=== PATIENT | male | born 1995 | race Caucasian/White ===

== ENCOUNTER 2019-01-13 09:46 | Emergency (ER) | payer OTHER ==
[2019-01-13] MEDS ORDERED: HYDROCODONE/CHLORPHEN 5 ML/OSYR ONE (10:38)
[2019-01-13] MEDS ORDERED: ONDANSETRON 4 MG (ODT) TAB ONE (10:39)
--- NOTE | 2019-01-13 11:54 | ER ---
Nurse's Notes [facility] Name: Umer Phillip Age: 23 yrs Sex: Male : 1995 Arrival Date: 01/13/2019 Time: 09:47 Bed 14 Private MD: Diagnosis: Malaise and fatigue;Myalgia Presentation: 01/13 10:01 Presenting complaint: Patient states: "after eating lunch yesterday I felt like I was aa5 hit by a bus, just hurting all over". Pt also c/o headache, fever, chills, diarrhea, and nausea. Denies vomiting. Pt reports slight cough. Transition of care: patient was not received from another setting of care. Onset of symptoms was January 2019. Risk Assessment: Do you want to hurt yourself or someone else? Patient reports no desire to harm self or others. Initial Sepsis Screen: Does the patient meet any 2 criteria? No. Patient's initial sepsis screen is negative. Does the patient have a suspected source of infection? No. Patient's initial sepsis screen is negative. Care prior to arrival: None. 10:01 Acuity: ELISEO 3 aa5 10:01 Method Of Arrival: Ambulatory aa5 Historical: - Allergies: 10:02 No Known Allergies; aa5 - PMHx: 10:02 Asthma; aa5 - PSHx: 10:02 Tonsillectomy; aa5 - Immunization history:: Flu vaccine is not up to date. - Social history:: Smoking status: Patient uses tobacco products, smokes one-half pack cigarettes per day. - Ebola Screening: : No symptoms or risks identified at this time. Screenin:43 Abuse screen: Denies threats or abuse. Denies injuries from another. Nutritional jl7 screening: No deficits noted. Tuberculosis screening: No symptoms or risk factors identified. Fall Risk None identified. Assessment: 10:43 General: Appears in no apparent distress. uncomfortable, ill, Behavior is calm, jl7 cooperative, appropriate for age. Pain: Complains of pain in "All over" Pain currently is 8 out of 10 on a pain scale. Quality of pain is described as aching, Pain began 1 day ago. Neuro: Level of Consciousness is awake, alert, obeys commands, Oriented to person, place, time, situation. Cardiovascular: Patient's skin is warm and dry. Cardiovascular: Heart tones present. Respiratory: Airway is patent Respiratory effort is even, unlabored, Respiratory pattern is regular, symmetrical, Breath sounds are clear bilaterally. GI: Abdomen is flat, non-distended, Bowel sounds present X 4 quads. : No signs and/or symptoms were reported regarding the genitourinary system. EENT: Throat is clear. Derm: Skin is pink, warm \\T\\ dry. 11:45 Reassessment: Patient appears in no apparent distress at this time. Patient and/or jl7 family updated on plan of care and expected duration. Pain level reassessed. Patient is alert, oriented x 3, equal unlabored respirations, skin warm/dry/pink. Patient states symptoms have improved. Vital Signs: 10:03 BP 137 / 80; Pulse 86; Resp 18 S; Temp 98.2(TE); Pulse Ox 98% on R/A; Weight 87.09 kg aa5 (R); Height 6 ft. 0 in. (182.88 cm) (R); Pain 8/10; 11:45 BP 132 / 80; Pulse 82; Resp 16 S; Pulse Ox 100% on R/A; Pain 7/10; jl7 10:03 Body Mass Index 26.04 (87.09 kg, 182.88 cm) aa5 ED Course: 09:47 Patient arrived in ED. as 10:02 Triage completed. aa5 10:02 Arm band placed on. aa5 10:11 Katie Hurtado, LAURA is Primary Nurse. jl7 10:15 Mariah Earl FNP-C is [facility]. snw 10:15 Campos Cooper MD is Attending Physician. snw 10:43 Patient has correct armband on for positive identification. Bed in low position. Call jl7 light in reach. Side rails up X 1. 10:43 Flu and/or RSV swab sent to lab. Strep swab sent to lab. jl7 12:08 No provider procedures requiring assistance completed. Patient did not have IV access jl7 during this emergency room visit. Administered Medications: 10:42 Drug: Tussionex Pennkinetic ER 5 ml Route: PO; jl7 12:10 Follow up: Response: No adverse reaction jl7 10:42 Drug: Zofran 4 mg Route: PO; jl7 11:00 Follow up: Response: No adverse reaction; Nausea is decreased jl7 Outcome: 11:53 Discharge ordered by MD. wright 12:08 Discharged to home ambulatory, with family. jl7 12:08 Condition: stable 12:08 Discharge instructions given to patient, family, Instructed on discharge instructions, follow up and referral plans. medication usage, Demonstrated understanding of instructions, follow-up care, medications, Prescriptions given X 2. 12:10 Patient left the ED. jl7 Signatures: Mariah Earl, PLASTERER ROUGH-C PLASTERER ROUGH-Csnw Consuelo Harley Audri, RN RN aa5 Katie Hurtado RN RN jl7
--- NOTE | 2019-01-13 11:54 | EDPHYS ---
Physician Documentation [facility] Name: Umer Phillip Age: 23 yrs Sex: Male : 1995 Arrival Date: 01/13/2019 Time: 09:47 Bed 14 Private MD: ED Physician Campos Cooper HPI: 01/13 10:33 This 23 yrs old Male presents to ER via Ambulatory with complaints of Fever, snw Pain All Over, Vomiting. 10:33 The patient reports fever, not measured (subjective). Modifying factors: The patient snw has had contact with sick. Associated signs and symptoms: Pertinent positives: chills, decreased appetite, myalgias, sinus congestion. Severity of symptoms: At their worst the symptoms were severe. The patient has not experienced similar symptoms in the past. The patient has been recently seen by a physician: yesterday, with similar presenting complaints. Historical: - Allergies: 10:02 No Known Allergies; aa5 - PMHx: 10:02 Asthma; aa5 - PSHx: 10:02 Tonsillectomy; aa5 - Immunization history:: Flu vaccine is not up to date. - Social history:: Smoking status: Patient uses tobacco products, smokes one-half pack cigarettes per day. - Ebola Screening: : No symptoms or risks identified at this time. ROS: 10:33 Eyes: Negative for injury, pain, redness, and discharge, ENT: Negative for injury, snw pain, and discharge, Neck: Negative for injury, pain, and swelling, Cardiovascular: Negative for chest pain, palpitations, and edema, Respiratory: Negative for shortness of breath, cough, wheezing, and pleuritic chest pain, Back: Negative for injury and pain, : Negative for injury, bleeding, discharge, and swelling, MS/Extremity: Negative for injury and deformity, Skin: Negative for injury, rash, and discoloration, Neuro: Negative for headache, weakness, numbness, tingling, and seizure. 10:33 Constitutional: Positive for body aches, chills, fatigue, fever, malaise, poor PO intake. 10:33 Abdomen/GI: Positive for abdominal pain, nausea, vomiting, and diarrhea, of the generalized. Exam: 10:33 Constitutional: This is a well developed, well nourished patient who is awake, alert, snw and in no acute distress. Head/Face: Normocephalic, atraumatic. Eyes: Pupils equal round and reactive to light, extra-ocular motions intact. Lids and lashes normal. Conjunctiva and sclera are non-icteric and not injected. Cornea within normal limits. Periorbital areas with no swelling, redness, or edema. ENT: Nares patent. No nasal discharge, no septal abnormalities noted. Tympanic membranes are normal and external auditory canals are clear. Oropharynx with no redness, swelling, or masses, exudates, or evidence of obstruction, uvula midline. Mucous membranes moist. Neck: Trachea midline, no thyromegaly or masses palpated, and no cervical lymphadenopathy. Supple, full range of motion without nuchal rigidity, or vertebral point tenderness. No Meningismus. Chest/axilla: Normal chest wall appearance and motion. Nontender with no deformity. No lesions are appreciated. Cardiovascular: Regular rate and rhythm with a normal S1 and S2. No gallops, murmurs, or rubs. Normal PMI, no JVD. No pulse deficits. Respiratory: Lungs have equal breath sounds bilaterally, clear to auscultation and percussion. No rales, rhonchi or wheezes noted. No increased work of breathing, no retractions or nasal flaring. Abdomen/GI: Soft, non-tender, with normal bowel sounds. No distension or tympany. No guarding or rebound. No evidence of tenderness throughout. Back: No spinal tenderness. No costovertebral tenderness. Full range of motion. Skin: Warm, dry with normal turgor. Normal color with no rashes, no lesions, and no evidence of cellulitis. MS/ Extremity: Pulses equal, no cyanosis. Neurovascular intact. Full, normal range of motion. Neuro: Awake and alert, GCS 15, oriented to person, place, time, and situation. Cranial nerves II-XII grossly intact. Motor strength 5/5 in all extremities. Sensory grossly intact. Cerebellar exam normal. Normal gait. Psych: Awake, alert, with orientation to person, place and time. Behavior, mood, and affect are within normal limits. Vital Signs: 10:03 BP 137 / 80; Pulse 86; Resp 18 S; Temp 98.2(TE); Pulse Ox 98% on R/A; Weight 87.09 kg aa5 (R); Height 6 ft. 0 in. (182.88 cm) (R); Pain 8/10; 11:45 BP 132 / 80; Pulse 82; Resp 16 S; Pulse Ox 100% on R/A; Pain 7/10; jl7 10:03 Body Mass Index 26.04 (87.09 kg, 182.88 cm) aa5 MDM: 10:16 Patient medically screened. [facility] 11:56 Data reviewed: vital signs, nurses notes. Data interpreted: Pulse oximetry: on room air snw is 98 %. Interpretation: normal. Counseling: I had a detailed discussion with the patient and/or guardian regarding: the historical points, exam findings, and any diagnostic results supporting the discharge/admit diagnosis, the presence of at least one elevated blood pressure reading (>120/80) during this emergency department visit, lab results, the need for outpatient follow up, to return to the emergency department if symptoms worsen or persist or if there are any questions or concerns that arise at home. Special discussion: Based on the history and exam findings, there is no indication for further emergent testing or inpatient evaluation. I discussed with the patient/guardian the need to see the primary care provider for further evaluation of the symptoms. 01/13 10:16 Order name: Flu; Complete Time: 11:40 snw 01/13 10:16 Order name: Strep; Complete Time: 11:12 snw 01/13 11:12 Order name: Throat Culture EDMS Administered Medications: 10:42 Drug: Tussionex Pennkinetic ER 5 ml Route: PO; jl7 12:10 Follow up: Response: No adverse reaction jl7 10:42 Drug: Zofran 4 mg Route: PO; jl7 11:00 Follow up: Response: No adverse reaction; Nausea is decreased jl7 Disposition: 01/14 07:35 Co-signature as Attending Physician, Campos Cooper MD I agree with the assessment and [facility] plan of care. Disposition: 01/13/19 11:53 Discharged to Home. Impression: Malaise and fatigue, Myalgia. - Condition is Stable. - Discharge Instructions: Influenza, Adult, Muscle Pain, Adult, Fatigue, Heat Therapy. - Prescriptions for orphenadrine citrate 100 mg Oral Tablet Sustained Release - take 1 tablet by ORAL route 2 times per day As needed; 20 tablet. promethazine 25 mg Oral Tablet - take 1 tablet by ORAL route every 6 hours As needed; 20 tablet. - Work release form, Medication Reconciliation Form, Thank You Letter, Antibiotic Education, Prescription Opioid Use form. - Follow up: Emergency Department; When: As needed; Reason: Worsening of condition. Follow up: Private Physician; When: 2 - 3 days; Reason: Recheck today's complaints, Continuance of care, Re-evaluation by your physician. Signatures: Dispatcher [employer] EDCO Campos Cooper, Mariah Narayanan MD, cha, ROSE MARIE-C REGISTERED PRIVATE DUTY NURSE-Csnw Leticia Kay, RN RN aa5 Katie Hurtado RN RN jl7 Corrections: (The following items were deleted from the chart) 01/13 12:10 11:53 01/13/2019 11:53 Discharged to Home. Impression: Malaise and fatigue; Myalgia. jl7 Condition is Stable. Forms are Medication Reconciliation Form, Thank You Letter, Antibiotic Education, Prescription Opioid Use. Follow up: Emergency Department; When: As needed; Reason: Worsening of condition. Follow up: Private Physician; When: 2 - 3 days; Reason: Recheck today's complaints, Continuance of care, Re-evaluation by your physician. snw
[2019-01-13 12:17] VITALS: TEMP 98.2
[2019-01-13 12:18] VITALS: BP 132/80; O2SAT 100
== END 2019-01-13 12:10 | disposition home or self-care (01) ==
LOC: ER 09:46
DX: M79.10 Myalgia, unspecified site (principal); R53.81 Other malaise; R53.83 Other fatigue
CPT/HCPCS: 87070; 87081; 87804; 99283

== ENCOUNTER 2020-01-03 13:57 | Emergency (ER) | payer OTHER, SELFPAY ==
[2020-01-03] MEDS ORDERED: HYDROCODONE/APAP 7.5/325 MG TAB ONE (14:34)
--- NOTE | 2020-01-03 14:49 | RAD REPORT ---
EXAM DESCRIPTION: CT - C Spine Wo Con - 01/03/2020 2:30 pm CLINICAL HISTORY: Neck injury with pain COMPARISON: 2013 TECHNIQUE: Computed axial tomography of the cervical spine were obtained with sagittal and coronal r econstruction images generated and reviewed. All CT scans are performed using dose optimization technique as appropriate and may include automated exposure control or mA/KV adjustment according to patient size. FINDINGS: A cervical fracture is not seen. No dislocation. Mild scoliosis involves the cervical spine No high-grade foraminal/ central stenosis seen IMPRESSION: A cervical fracture is not seen. Mild scoliosis may indicate muscle spasm. If the patient continues have symptoms to suggest spinal cord/spinal canal pathology then MRI would b e recommended.
--- NOTE | 2020-01-03 14:54 | RAD REPORT ---
EXAM DESCRIPTION: CTThoracic Spine W/o Cont01/03/2020 2:30 pm CLINICAL HISTORY: Back injury with Back pain COMPARISON: None TECHNIQUE: Computed axial tomography of thoracic spine was obtained with coronal and sagittal recons truction. All CT scans are performed using dose optimization technique as appropriate and may include automated exposure control or mA/KV adjustment according to patient size. FINDINGS: No fracture is seen. No dislocation is noted. No high-grade central/foraminal stenosis seen. IMPRESSION: Negative for a thoracic fracture If the patient has clinical symptoms to suggest spinal cord/spinal canal pathology then MRI would be recommended.
--- NOTE | 2020-01-03 15:32 | ER ---
Nurse's Notes [facility] Name: Umer Phillip Age: 24 yrs Sex: Male : 1995 Arrival Date: 01/03/2020 Time: 13:58 Bed 7 Private MD: Diagnosis: Muscle spasm of back Presentation: 01/02 14:08 Chief complaint: Patient states: Pushing a car and felt something pop in my neck and jl7 upper back and now I can't move my neck, reporting pain to neck and upper back x 30 min. Coronavirus screen: Client denies travel out of the [place] in the last 14 days. At this time, the client does not indicate any symptoms associated with coronavirus-19. Ebola Screen: No symptoms or risks identified at this time. Initial Sepsis Screen: Does the patient meet any 2 criteria? No. Patient's initial sepsis screen is negative. Does the patient have a suspected source of infection? No. Patient's initial sepsis screen is negative. Risk Assessment: Do you want to hurt yourself or someone else? Patient reports no desire to harm self or others. Onset of symptoms was January 03, 2020 at 13:40. Care prior to arrival: None. 14:08 Method Of Arrival: Ambulatory 7 14:08 Acuity: ELISEO 4 jl7 Triage Assessment: 14:10 General: Appears in no apparent distress. uncomfortable, Behavior is calm, cooperative, jl7 appropriate for age. Pain: Complains of pain in neck and upper back Pain currently is 6 out of 10 on a pain scale. Historical: - Allergies: 14:10 No Known Allergies; jl7 - Home Meds: 14:10 None [Active]; jl7 - PMHx: 14:10 Asthma; jl7 - PSHx: 14:10 Tonsillectomy; jl7 - Immunization history:: Adult Immunizations up to date. - Social history:: Smoking status: Patient denies any tobacco usage or history of. Screenin:00 Abuse screen: Denies threats or abuse. Denies injuries from another. Nutritional jl7 screening: No deficits noted. Tuberculosis screening: No symptoms or risk factors identified. Fall Risk None identified. Assessment: 15:00 General: Appears in no apparent distress. comfortable, Behavior is calm, cooperative. iw Pain: Complains of pain in thoracic spine and cervical spine and right trapezius and right mid cervical area. Neuro: Level of Consciousness is awake, alert, obeys commands, Oriented to person, place, time, situation, Moves all extremities. Cardiovascular: Patient's skin is warm and dry. Respiratory: Respiratory effort is even, unlabored, Respiratory pattern is regular, symmetrical. Derm: Skin is intact, is healthy with good turgor. Musculoskeletal: Range of motion: intact in all extremities. 15:45 Reassessment: Patient appears in no apparent distress at this time. No changes from jl7 previously documented assessment. Patient and/or family updated on plan of care and expected duration. Pain level reassessed. Patient is alert, oriented x 3, equal unlabored respirations, skin warm/dry/pink. Vital Signs: 14:08 BP 124 / 83; Pulse 100; Resp 19; Temp 98.6; Pulse Ox 100% ; Weight 89.81 kg; Height 5 jl7 ft. 11 in. (180.34 cm); Pain 6/10; 15:57 BP 127 / 86; Pulse 87; Resp 17; Pulse Ox 99% ; jl7 14:08 Body Mass Index 27.62 (89.81 kg, 180.34 cm) jl7 ED Course: 13:58 Patient arrived in ED. ag5 14:10 Triage completed. jl7 14:10 Arm band placed on right wrist. jl7 14:12 Olga Philip, RN is Primary Nurse. iw 14:14 Shaila Chester FNP-C is PHCP. kb 14:14 Campos Cooper MD is Attending Physician. kb 14:27 CT completed. Patient tolerated procedure well. Patient moved to CT via wheelchair. sw Patient moved back from CT. 14:41 CT Thoracic Spine Wo Cont In Process Unspecified. EDMS 14:41 CT C Spine In Process Unspecified. EDMS 15:00 Patient has correct armband on for positive identification. Bed in low position. Call jl7 light in reach. Side rails up X 1. 15:58 No provider procedures requiring assistance completed. Patient did not have IV access jl7 during this emergency room visit. Administered Medications: 14:23 Drug: [place] (7.5 mg-325 mg) 1 tabs Route: PO; iw 15:57 Follow up: Response: No adverse reaction jl7 15:44 Drug: TORadol 30 mg Route: IM; Site: right deltoid; jl7 15:57 Follow up: Response: No adverse reaction jl7 15:45 Drug: Valium 2 mg Route: PO; jl7 15:57 Follow up: Response: No adverse reaction jl7 Outcome: 15:32 Discharge ordered by . kb 15:58 Patient left the ED. 15:58 Discharged to home via wheelchair, with family. 7 15:58 Condition: stable 15:58 Discharge instructions given to patient, friend, Instructed on discharge instructions, follow up and referral plans. no driving heavy equipment, medication usage, Demonstrated understanding of instructions, follow-up care, medications, Prescriptions given X 2. Signatures: Dispatcher [employer] Shaila Guzman, SOCIOLOGY FACULTY MEMBER-C SOCIOLOGY FACULTY MEMBER-Olga Fink, RN Monique Agudelo Jahala, RN RN [facility] Deepika, Rosa 5
--- NOTE | 2020-01-03 15:32 | EDPHYS ---
Physician Documentation [facility] Name: Umer Phillip Age: 24 yrs Sex: Male : 1995 Arrival Date: 01/03/2020 Time: 13:58 Bed 7 Private MD: ED Physician Campos Cooper HPI: 01/02 15:30 This 24 yrs old Male presents to ER via Ambulatory with complaints of Neck kb and Upper Back Pain. 15:30 The patient or guardian complains of pain, tenderness. The symptoms are located at the kb cervical spine and thoracic spine. Onset: The symptoms/episode began/occurred just prior to arrival. Context: The problem was sustained at home, outdoors, The neck injury/problem resulted from pushing a vehicle. Associated signs and symptoms: The patient has no apparent associated signs or symptoms, The patient denies any alcohol use. The patient is not apparently intoxicated. No neurological symptoms were experienced by the patient prior to arrival in the emergency department. The pain does not radiate. Modifying factors: The symptoms are alleviated by nothing. the symptoms are aggravated by nothing. Severity of symptoms: At their worst the symptoms were moderate, in the emergency department the symptoms are unchanged. The patient has not experienced similar symptoms in the past. The patient has not recently seen a physician. Historical: - Allergies: 14:10 No Known Allergies; jl7 - Home Meds: 14:10 None [Active]; jl7 - PMHx: 14:10 Asthma; jl7 - PSHx: 14:10 Tonsillectomy; jl7 - Immunization history:: Adult Immunizations up to date. - Social history:: Smoking status: Patient denies any tobacco usage or history of. ROS: 15:28 Constitutional: Negative for fever, chills, and weight loss, Cardiovascular: Negative kb for chest pain, palpitations, and edema, Respiratory: Negative for shortness of breath, cough, wheezing, and pleuritic chest pain, Abdomen/GI: Negative for abdominal pain, nausea, vomiting, diarrhea, and constipation, : Negative for injury, bleeding, discharge, and swelling, MS/Extremity: Negative for injury and deformity, Skin: Negative for injury, rash, and discoloration, Neuro: Negative for headache, weakness, numbness, tingling, and seizure. 15:28 Neck: Positive for pain with movement, pain at rest, tenderness, of the neck. 15:28 Back: Positive for pain at rest, pain with movement, of the thoracic area. Exam: 15:29 Constitutional: This is a well developed, well nourished patient who is awake, alert, kb and in no acute distress. Head/Face: Normocephalic, atraumatic. Chest/axilla: Normal chest wall appearance and motion. Nontender with no deformity. No lesions are appreciated. Cardiovascular: Regular rate and rhythm with a normal S1 and S2. No gallops, murmurs, or rubs. Normal PMI, no JVD. No pulse deficits. Respiratory: Lungs have equal breath sounds bilaterally, clear to auscultation and percussion. No rales, rhonchi or wheezes noted. No increased work of breathing, no retractions or nasal flaring. Abdomen/GI: Soft, non-tender, with normal bowel sounds. No distension or tympany. No guarding or rebound. No evidence of tenderness throughout. Skin: Warm, dry with normal turgor. Normal color with no rashes, no lesions, and no evidence of cellulitis. MS/ Extremity: Pulses equal, no cyanosis. Neurovascular intact. Full, normal range of motion. Neuro: Awake and alert, GCS 15, oriented to person, place, time, and situation. Cranial nerves II-XII grossly intact. Motor strength 5/5 in all extremities. Sensory grossly intact. Cerebellar exam normal. Normal gait. 15:29 Neck: External neck: tenderness, that is moderate, of the left mid cervical area, right mid cervical area, left trapezius, lower cervical area and right trapezius. 15:29 Back: pain, that is moderate, of the thoracic area. Vital Signs: 14:08 BP 124 / 83; Pulse 100; Resp 19; Temp 98.6; Pulse Ox 100% ; Weight 89.81 kg; Height 5 jl7 ft. 11 in. (180.34 cm); Pain 6/10; 15:57 BP 127 / 86; Pulse 87; Resp 17; Pulse Ox 99% ; jl7 14:08 Body Mass Index 27.62 (89.81 kg, 180.34 cm) jl7 MDM: 14:14 Patient medically screened. kb 15:28 Data reviewed: vital signs, nurses notes. Data interpreted: Pulse oximetry: on room air kb is 100 %. Interpretation: normal. Counseling: I had a detailed discussion with the patient and/or guardian regarding: the historical points, exam findings, and any diagnostic results supporting the discharge/admit diagnosis, radiology results, the need for outpatient follow up, a family practitioner, to return to the emergency department if symptoms worsen or persist or if there are any questions or concerns that arise at home. 01/02 14:18 Order name: CT Thoracic Spine Wo Cont; Complete Time: 15:02 kb 01/02 14:18 Order name: CT C Spine; Complete Time: 14:54 kb Administered Medications: 14:23 Drug: [place] (7.5 mg-325 mg) 1 tabs Route: PO; iw 15:57 Follow up: Response: No adverse reaction jl7 15:44 Drug: TORadol 30 mg Route: IM; Site: right deltoid; jl7 15:57 Follow up: Response: No adverse reaction jl7 15:45 Drug: Valium 2 mg Route: PO; jl7 15:57 Follow up: Response: No adverse reaction jl7 Disposition: 01/03 13:36 Co-signature as Attending Physician, Campos Cooper MD I agree with the assessment and mateo plan of care. Disposition: 01/03/20 15:32 Discharged to Home. Impression: Muscle spasm of back. - Condition is Stable. - Discharge Instructions: Back Pain, Adult, [id number], Muscle Cramps and Spasms, [id number]. - Prescriptions for Cyclobenzaprine 10 mg Oral Tablet - take 1 tablet by ORAL route every 8 hours As needed; 21 tablet. Diclofenac Sodium 75 mg Oral Tablet, Delayed Release (E.C.) - take 1 tablet by ORAL route 2 times per day As needed; 30 tablet. - Medication Reconciliation Form, Thank You Letter, Antibiotic Education, Prescription Opioid Use form. - Follow up: Emergency Department; When: As needed; Reason: Worsening of condition. Follow up: Private Physician; When: 2 - 3 days; Reason: Recheck today's complaints, Continuance of care, Re-evaluation by your physician. Signatures: Dispatcher [employer] EDShaila Marino, Campos Reese MD MD cha Williams, Irene RN Katie Gupta RN RN jl7 Corrections: (The following items were deleted from the chart) 01/02 15:58 15:32 01/03/2020 15:32 Discharged to Home. Impression: Muscle spasm of back. Condition iw is Stable. Forms are Medication Reconciliation Form, Thank You Letter, Antibiotic Education, Prescription Opioid Use. Follow up: Emergency Department; When: As needed; Reason: Worsening of condition. Follow up: Private Physician; When: 2 - 3 days; Reason: Recheck today's complaints, Continuance of care, Re-evaluation by your physician. kb
[2020-01-03] MEDS ORDERED: KETOROLAC 30 MG/ML INJ ONE (15:54)
[2020-01-03] MEDS ORDERED: DIAZEPAM 2 MG TABLET ONE (15:54)
[2020-01-03 16:08] VITALS: TEMP 98.6
[2020-01-03 16:09] VITALS: BP 127/86; O2SAT 99
== END 2020-01-03 15:58 | disposition home or self-care (01) ==
LOC: ER 13:57
DX: M62.830 Muscle spasm of back (principal); M54.2 Cervicalgia
CPT/HCPCS: 72125; 72128; 96372; 99284

== ENCOUNTER 2020-12-12 18:40 | Emergency (ER) | payer SELFPAY ==
[2020-12-12] MEDS ORDERED: ACETAMINOPHEN 325 MG TABLET ONE ×2 (19:42→21:34)
[2020-12-12 20:26] LABS: SARS-COV-2 RT PCR POSITIVE (NEGATIVE)
--- NOTE | 2020-12-12 20:53 | ER ---
Nurse's Notes [facility] Name: Umer Phillip Age: 24 yrs Sex: Male : 1995 Arrival Date: 12/12/2020 Time: 18:41 Bed 11 Private MD: Diagnosis: SARS-associated coronavirus as the cause of diseases classified elsewhere;Fever, unspecified Presentation: 12/12 19:11 Chief complaint: Patient states: Fever, body aches, dizziness, headaches x 2 days. kg Coronavirus screen: Vaccine status: Patient reports being unvaccinated. chills, congestion, fever, headache, runny nose, Client presents with at least one sign or symptom that may indicate coronavirus-19. Standard/surgical mask placed on the client. Provider contacted for isolation considerations. Ebola Screen: Patient negative for fever greater than or equal to 101.5 degrees Fahrenheit, and additional compatible Ebola Virus Disease symptoms Patient denies exposure to infectious person. Patient denies travel to an Ebola-affected area in the 21 days before illness onset. Initial Sepsis Screen: Does the patient meet any 2 criteria? No. Patient's initial sepsis screen is negative. Does the patient have a suspected source of infection? No. Patient's initial sepsis screen is negative. Risk Assessment: Do you want to hurt yourself or someone else? Patient reports no desire to harm self or others. Onset of symptoms was December 11, 2020. 19:11 Method Of Arrival: Ambulatory kg 19:11 Acuity: ELISEO 4 kg Triage Assessment: 19:13 General: Appears in no apparent distress. Behavior is calm, cooperative, appropriate kg for age, quiet. Pain: Complains of pain in Generalized. Historical: - Allergies: 19:13 No Known Allergies; kg - Home Meds: 19:13 None [Active]; kg - PMHx: 19:13 Asthma; kg - PSHx: 19:13 None; kg - Immunization history:: Adult Immunizations up to date, Client reports having NOT received the Covid vaccine. - Social history:: Smoking status: Reported history of juuling and/or vaping. Patient uses alcohol, occasionally. - Family history:: not pertinent. - Hospitalizations: : No recent hospitalization is reported. Screenin:23 Abuse screen: Denies threats or abuse. Denies injuries from another. Nutritional kg screening: No deficits noted. Tuberculosis screening: No symptoms or risk factors identified. Fall Risk None identified. Assessment: 21:40 Reassessment: Patient appears in no apparent distress at this time. Patient is alert, vg1 oriented x 3, equal unlabored respirations, skin warm/dry/pink. Patient denies pain at this time. Vital Signs: 19:22 BP 147 / 95; Pulse 85; Resp 20; Temp 99.2(O); Pulse Ox 98% on R/A; Weight 94.8 kg; kg Height 5 ft. 11 in. (180.34 cm) (R); Pain 7/10; 20:48 BP 126 / 88; Pulse 92; Resp 22; Temp 98.2; Pulse Ox 100% on R/A; cc4 21:41 BP 122 / 76; Pulse 79; Resp 20; Pulse Ox 98% on R/A; vg1 19:22 Body Mass Index 29.15 (94.80 kg, 180.34 cm) kg ED Course: 18:41 Patient arrived in ED. am2 19:13 Triage completed. kg 19:14 Itz Dobbs MD is Attending Physician. rn 19:23 Patient has correct armband on for positive identification. kg 19:23 Arm band placed on. kg 20:48 No provider procedures requiring assistance completed. cc4 21:03 Enma Lopez is Primary Nurse. cc4 21:41 Patient did not have IV access during this emergency room visit. vg1 Administered Medications: 19:20 Drug: Tylenol 650 mg Route: PO; kg Outcome: 20:52 Discharge ordered by MD. rn 21:40 Discharged to home ambulatory. vg1 21:40 Condition: stable 21:40 Discharge instructions given to patient, Instructed on discharge instructions, follow up and referral plans. Demonstrated understanding of instructions, follow-up care. 21:41 Patient left the ED. vg1 Signatures: Itz Dobbs MD MD rn Moreno, Amanda am2 Britta Ng RN RN vg1 Tracy Leahy RN RN kg Enma Lopez cc4 Corrections: (The following items were deleted from the chart) 21:15 21:15 Tylenol 650 mg PO kg kg
--- NOTE | 2020-12-12 20:53 | EDPHYS ---
Physician Documentation [facility] Name: Umer Phillip Age: 24 yrs Sex: Male : 1995 Arrival Date: 12/12/2020 Time: 18:41 Bed 11 Private MD: ED Physician Itz Dobbs HPI: 12/12 19:15 This 24 yrs old Male presents to ER via Ambulatory with complaints of Fever, rn Cough, Dizziness, bodyaches. 19:15 The patient reports fever, not measured (subjective). Onset: The symptoms/episode rn began/occurred this morning. Modifying factors: there are no obvious modifying factors. Associated signs and symptoms: Pertinent positives: chills, cough, diarrhea, myalgias, runny nose, Pertinent negatives: abdominal pain, altered mental status, shortness of breath. Severity of symptoms: At their worst the symptoms were mild in the emergency department the symptoms are unchanged. The patient has not experienced similar symptoms in the past. The patient has not recently seen a physician. Patient reports muscle aches, cough, runny nose, diarrhea, fatigue, began this morning. No known sick contacts but recently in contact with Covid positive patient. Daughter with dry cough. Patient vapes.. Historical: - Allergies: 19:13 No Known Allergies; kg - Home Meds: 19:13 None [Active]; kg - PMHx: 19:13 Asthma; kg - PSHx: 19:13 None; kg - Immunization history:: Adult Immunizations up to date, Client reports having NOT received the Covid vaccine. - Social history:: Smoking status: Reported history of juuling and/or vaping. Patient uses alcohol, occasionally. - Family history:: not pertinent. - Hospitalizations: : No recent hospitalization is reported. ROS: 19:15 Constitutional: + fever and chills Eyes: Negative for injury, pain, redness, and rn infusion, ENT: Positive for cough and sore throat, positive for nasal congestion Cardiovascular: Negative for chest pain, palpitations, and edema, Respiratory: Positive for cough Abdomen/GI: Positive for diarrhea, negative for abdominal pain : Negative for injury, bleeding, discharge, and swelling, MS/Extremity: Negative for injury and deformity, Skin: Negative for injury, rash, and discoloration, Neuro: Negative for headache,numbness, tingling, and seizure. 19:15 All other systems are negative. rn Exam: 19:15 Constitutional: This is a well developed, well nourished patient who is awake, alert, rn and in no acute distress. Ambulatory to triage room without assistance. Head/Face: Normocephalic, atraumatic. Eyes: Pupils equal round and reactive to light, extra-ocular motions intact. Lids and lashes normal. Conjunctiva and sclera are non-icteric and not injected. Cornea within normal limits. Periorbital areas with no swelling, redness, or edema. ENT: No stridor Cardiovascular: Regular rate and rhythm. No pulse deficits. Respiratory: Mild tachypnea. No retractions. Speaking full sentences. Abdomen/GI: Soft, non-tender Skin: Warm, dry MS/ Extremity: Pulses equal, no cyanosis. Neurovascular intact. Full, normal range of motion. Equal circumference. Neuro: Awake and alert, GCS 15, oriented to person, place, time, and situation. Cranial nerves II-XII grossly intact. Motor strength 5/5 in all extremities. Sensory grossly intact. Normal gait. Vital Signs: 19:22 BP 147 / 95; Pulse 85; Resp 20; Temp 99.2(O); Pulse Ox 98% on R/A; Weight 94.8 kg; kg Height 5 ft. 11 in. (180.34 cm) (R); Pain 7/10; 20:48 BP 126 / 88; Pulse 92; Resp 22; Temp 98.2; Pulse Ox 100% on R/A; cc4 21:41 BP 122 / 76; Pulse 79; Resp 20; Pulse Ox 98% on R/A; vg1 19:22 Body Mass Index 29.15 (94.80 kg, 180.34 cm) kg MDM: 19:14 Patient medically screened. rn 20:51 Differential diagnosis: viral Infection, bacterial infection, URI, pneumonia. Data rn reviewed: vital signs, nurses notes, lab test result(s), and as a result, I will discharge patient. Data interpreted: case monitor: rate is 85 beats/min, rhythm is normal sinus rhythm, regular, with no ectopy, Interpretation: normal rate, normal rhythm, Pulse oximetry: on room air is 98 %. Interpretation: normal. Counseling: I had a detailed discussion with the patient and/or guardian regarding: the historical points, exam findings, and any diagnostic results supporting the discharge/admit diagnosis, lab results, the need for outpatient follow up, to return to the emergency department if symptoms worsen or persist or if there are any questions or concerns that arise at home. Special discussion: I discussed with the patient/guardian in detail that at this point there is no indication for admission to the hospital. It is understood, however, that if the symptoms persist or worsen the patient needs to return immediately for re-evaluation. 12/12 19:14 Order name: Flu rn 12/12 20:26 Order name: COVID-19/FLU A+B; Complete Time: 20:51 EDMS Administered Medications: 19:20 Drug: Tylenol 650 mg Route: PO; kg Disposition Summary: 12/12/20 20:52 Discharge Ordered Location: Home rn Problem: new rn Symptoms: have improved rn Condition: Stable rn Diagnosis - SARS-associated coronavirus as the cause of diseases classified elsewhere rn - Fever, unspecified rn Followup: rn - With: Private Physician - When: As needed - Reason: Recheck today's complaints, Re-evaluation by your physician Discharge Instructions: - Discharge Summary Sheet rn - Fever, Adult rn - COVID-19 rn - 10 Things You Can Do to Manage Your COVID-19 Symptoms at Home - [facility] rn - Viral Illness, Adult rn - Prevent the Spread of COVID-19 if You Are Sick - CDC rn Forms: - Medication Reconciliation Form rn - Thank You Letter rn - Antibiotic engine turner - Prescription Opioid Use rn Signatures: Dispatcher [employer] [facility] Itz Dobbs MD MD rn Graham, Kristen, RN RN kg Corrections: (The following items were deleted from the chart) 19:30 19:15 CORONAVIRUS+MR.LAB.BRZ ordered. EDMT EDMT
[2020-12-12 21:57] VITALS: TEMP 98.2
[2020-12-12 21:59] VITALS: BP 122/76; O2SAT 98
== END 2020-12-12 21:41 | disposition home or self-care (01) ==
LOC: ER 18:40
DX: U07.1 COVID-19 (principal)
CPT/HCPCS: 0240U; 99283

== ENCOUNTER 2021-05-02 12:58 | Emergency (ER) | payer OTHER ==
[2021-05-02] MEDS ORDERED: ONDANSETRON 4 MG (ODT) TAB ONE (14:31)
[2021-05-02] MEDS ORDERED: ACETAMINOPHEN 500 MG TAB ONE (14:31)
--- NOTE | 2021-05-02 14:42 | RAD REPORT ---
EXAM DESCRIPTION: CT - Head Brain Wo Cont - 05/02/2021 2:34 pm CLINICAL HISTORY: HEADACHE Headache, drowsiness COMPARISON: No comparisons TECHNIQUE: All CT scans are performed using dose optimization technique as appropriate and may inclu de automated exposure control or mA/KV adjustment according to patient size. FINDINGS: No intracranial hemorrhage, hydrocephalus or extra-axial fluid collection.No areas of brai n edema or evidence of midline shift. The paranasal sinuses and mastoids are clear. The calvarium is intact. IMPRESSION: No acute intracranial abnormality.
--- NOTE | 2021-05-02 15:01 | ER ---
Nurse's Notes [facility] Name: Umer Phillip Age: 25 yrs Sex: Male : 1995 Arrival Date: 05/02/2021 Time: 13:02 Bed 10 Private MD: Diagnosis: Concussion without loss of consciousness Presentation: 05/02 13:33 Chief complaint: Patient states: Yesterday at 11:30 I was at work. I went to step over ld1 a mudhole and I walked into a gradall bucket hitting my head on it. Today I began having dizziness and nausea. Coronavirus screen: At this time, the client does not indicate any symptoms associated with coronavirus-19. Ebola Screen: No symptoms or risks identified at this time. Mechanism of Injury: The problem was sustained at work, resulted from impacting a hard surface, Gradall machine bucket. Initial Sepsis Screen: Does the patient meet any 2 criteria? No. Patient's initial sepsis screen is negative. Does the patient have a suspected source of infection? No. Patient's initial sepsis screen is negative. Risk Assessment: Do you want to hurt yourself or someone else? Patient reports no desire to harm self or others. 13:33 Method Of Arrival: Ambulatory ld1 13:33 Acuity: ELISEO 4 ld1 Triage Assessment: 13:36 General: Appears in no apparent distress. comfortable, Behavior is calm, cooperative, ld1 appropriate for age. Pain: Denies pain. EENT: Reports blurred vision intermittent. Neuro: Level of Consciousness is awake, alert, obeys commands, Oriented to person, place, time, situation, Appropriate for age Reports blurred vision dizziness. Respiratory: Airway is patent Respiratory effort is even, unlabored. GI: Reports nausea. Historical: - Home Meds: 13:36 Zoloft Oral [Active]; ld1 - PMHx: 13:36 Asthma; Depressive disorder; Anxiety; ld1 - PSHx: 13:36 Tonsillectomy; ld1 - Immunization history:: Adult Immunizations up to date, Client reports having NOT received the Covid vaccine. - Social history:: Smoking status: Reported history of juuling and/or vaping. Patient uses alcohol, occasionally. Patient/guardian denies using street drugs. Screenin:07 Abuse screen: Denies threats or abuse. Denies injuries from another. Nutritional jh5 screening: No deficits noted. Tuberculosis screening: No symptoms or risk factors identified. Fall Risk None identified. Vital Signs: 13:33 BP 143 / 89; Pulse 73; Resp 18; Temp 98.5(O); Pulse Ox 99% on R/A; Weight 99.79 kg; ld1 Height 6 ft. 0 in. (182.88 cm); Pain 0/10; 13:33 Body Mass Index 29.84 (99.79 kg, 182.88 cm) ld1 [place] Coma Score: 13:33 Eye Response: spontaneous(4). Verbal Response: oriented(5). Motor Response: obeys ld1 commands(6). Total: 15. ED Course: 13:02 Patient arrived in ED. as 13:36 Triage completed. ld1 13:36 Arm band placed on right wrist. ld1 14:12 Kim Nava, RN is Primary Nurse. 5 14:17 Campos Abel PA is PHCP. cp 14:17 Karlee Lew MD is Attending Physician. cp 14:34 CT Head Brain wo Cont In Process Unspecified. EDMS 15:07 Patient has correct armband on for positive identification. jh5 15:07 No provider procedures requiring assistance completed. Patient did not have IV access [facility] during this emergency room visit. Administered Medications: 14:30 Drug: Zofran (Ondansetron) 4 mg Route: PO; jh5 14:30 Drug: Tylenol 1000 mg Route: PO; 5 Outcome: 15:00 Discharge ordered by MD. cp 15:07 Discharged to home ambulatory. jh5 15:07 Condition: good 15:07 Discharge instructions given to patient. 15:08 Patient left the ED. 5 Signatures: Dispatcher [employer] EDMS Consuelo Harley as Campos Abel PA PA cp Astrid Thomas RN RN ld1 Kim Nava RN RN 5 Corrections: (The following items were deleted from the chart) 13:36 13:36 PSHx: None; ld1 ld1
--- NOTE | 2021-05-02 15:01 | EDPHYS ---
Physician Documentation [facility] Name: Umer Phillip Age: 25 yrs Sex: Male : 1995 Arrival Date: 05/02/2021 Time: 13:02 Bed 10 Private MD: ED Physician Karlee Lew HPI: 05/02 14:30 This 25 yrs old Male presents to ER via Ambulatory with complaints of Closed Head cp Injury-Adult, Dizziness. 14:30 The patient's problem is reported as headache. Onset: The symptoms/episode cp began/occurred yesterday. Associated signs and symptoms: Pertinent positives: dizziness, vomiting. Severity of symptoms: in the emergency department the symptoms are unchanged despite home interventions. Patient's baseline: Neuro: alert and fully oriented, Motor: no deficits, Ambulation: walks without assistance, Speech: normal. patient reports striking head on heavy equipment while at work yesterday. Became dazed but no LOC. Historical: - Home Meds: 13:36 Zoloft Oral [Active]; ld1 - PMHx: 13:36 Asthma; Depressive disorder; Anxiety; ld1 - PSHx: 13:36 Tonsillectomy; ld1 - Immunization history:: Adult Immunizations up to date, Client reports having NOT received the Covid vaccine. - Social history:: Smoking status: Reported history of juuling and/or vaping. Patient uses alcohol, occasionally. Patient/guardian denies using street drugs. ROS: 14:33 All other systems are negative. cp Exam: 14:40 Constitutional: The patient appears in no acute distress, alert, awake, comfortable, cp non-toxic, well developed, well nourished. 14:40 Eyes: Pupils equal round and reactive to light, extra-ocular motions intact. Lids and cp lashes normal. Conjunctiva and sclera are non-icteric and not injected. Cornea within normal limits. Periorbital areas with no swelling, redness, or edema. 14:40 Head/face: Noted is tenderness, that is mild, of the top of head. 14:40 Neck: ROM/movement: is normal, is supple, without pain, no range of motions limitations, no nuchal rigidity. 14:40 Chest/axilla: Inspection: normal, Palpation: is normal, no crepitus, no tenderness. 14:40 Cardiovascular: Rate: normal, Rhythm: regular. 14:40 Respiratory: the patient does not display signs of respiratory distress, Respirations: normal, no use of accessory muscles, no retractions, labored breathing, is not present, Breath sounds: are clear throughout, no decreased breath sounds, no stridor, no wheezing. 14:40 Abdomen/GI: Inspection: abdomen appears normal, Palpation: abdomen is soft and non-tender, in all quadrants. 14:40 Back: pain, is absent, ROM is normal. 14:40 Neuro: Orientation: to person, place \T\ time. Mentation: Motor: moves all fours, strength is normal, Sensation: is normal, Gait: is steady, at a normal pace, without difficulty. 15:00 Radiologist reports: no acute findings Vital Signs: 13:33 BP 143 / 89; Pulse 73; Resp 18; Temp 98.5(O); Pulse Ox 99% on R/A; Weight 99.79 kg; ld1 Height 6 ft. 0 in. (182.88 cm); Pain 0/10; 13:33 Body Mass Index 29.84 (99.79 kg, 182.88 cm) ld1 Tamiment Coma Score: 13:33 Eye Response: spontaneous(4). Verbal Response: oriented(5). Motor Response: obeys ld1 commands(6). Total: 15. MDM: 14:18 Patient medically screened. cp 15:00 Data reviewed: vital signs, nurses notes, radiologic studies, CT scan. 15:00 Counseling: I had a detailed discussion with the patient and/or guardian regarding: the cp historical points, exam findings, and any diagnostic results supporting the discharge/admit diagnosis, radiology results, to return to the emergency department if symptoms worsen or persist or if there are any questions or concerns that arise at home. Special discussion: Based on the patient's history, exam and DX evaluation, there is no indication for emergent intervention or inpatient TX. It is understood by the patient/guardian that if the SXs persist or worsen they need to return immediately for re-evaluation. 05/02 14:25 Order name: CT Head Brain wo Cont; Complete Time: 14:52 cp Administered Medications: 14:30 Drug: Zofran (Ondansetron) 4 mg Route: PO; 5 14:30 Drug: Tylenol 1000 mg Route: PO; jh5 Disposition Summary: 05/02/21 15:00 Discharge Ordered Location: Home cp Problem: new cp Symptoms: have improved cp Condition: Stable cp Diagnosis - Concussion without loss of consciousness cp Followup: cp - With: Private Physician - When: 1 - 2 days - Reason: Recheck today's complaints Discharge Instructions: - Discharge Summary Sheet cp - Concussion, Adult cp Forms: - Medication Reconciliation Form cp - Thank You Letter cp - Antibiotic Education cp - Prescription Opioid Use cp Prescriptions: - Ibuprofen 800 mg Oral Tablet - take 1 tablet by ORAL route every 8 hours As needed take with food; 30 tablet; cp Refills: 0, Product Selection Permitted - Zofran 4 mg Oral Tablet - take 1 tablet by ORAL route every 12 hours As needed; 20 tablet; Refills: 0, cp Product Selection Permitted Signatures: Dispatcher [employer] EDMS Campos Abel PA PA cp Dibbern, Lauren, RN RN ld1 Kim Nava RN RN jh5 Corrections: (The following items were deleted from the chart) 13:36 13:36 PSHx: None; ld1 ld1
[2021-05-02 15:23] VITALS: BP 143/89; TEMP 98.5; O2SAT 99
== END 2021-05-02 15:08 | disposition home or self-care (01) ==
LOC: ER 12:58
DX: S06.0X0A Concussion without loss of consciousness, initial encounter (principal); W31.9XXA Contact with unspecified machinery, initial encounter; Y93.89 Activity, other specified; Y92.9 Unspecified place or not applicable; Y99.0 Civilian activity done for income or pay; W31.89XA Contact with other specified machinery, initial encounter
CPT/HCPCS: 70450; 99283

== ENCOUNTER 2022-01-07 03:57 | Emergency (ER) | payer OTHER ==
--- OUTSIDE RECORDS SUMMARY | 2022-01-07 04:00 | XMS REPORT | Continuity of Care Document ---
:1995 Author Organization [facility] t Address [address] [place] [address] Care Team Providers Name Role Phone CTR, [facility] Primary Care Physician Unavailable BAKARI CURRY Attending Clinician Unavailable Bakari Curry MD Attending Clinician [phone] BAKARI CURRY Admitting Clinician Unavailable Payers Payer Name Policy Type Policy Number Effective Date Expiration Date Leif aldrich FORMERLY [facility] [id number] 2018 00:00:00 [employer] [employer] [id number] 2021 [employer] 00:00:00 Problems This patient has no known problems. Allergies, Adverse Reactions, Alerts Allergy Allergy Status Severity Reaction(s) Onset Inactive Treating Comm ents Source Name Type Date Date Clinician NO KNOWN Drug Active Univers ALLERGIE Class it[facility] of [facility] Social History Social Habit Start Date Stop Date Quantity Comments Source Exposure to 2021-09-04 2021-09-14 Not sure [facility] SARS-CoV-2 (event) 00:00:00 03:17:00 Medica l Branch Sex Assigned At [birth year] [facility] 00:00:00 00:00:00 Medical Branch Smoking Status Start Date Stop Date Source Unknown if ever smoked [facility] Medications Ordered Filled Start Stop Current Ordering Indication Dosage Frequency Signature Comments Components Source Medication Medication Date Date Medication? Clinician (SIG) Name Name NaCl 0.9% 1000mL at 999 Uni vers (NS) bolus 09-14 mL/hr, ity of infusion 09:30: 09:55 1,000 mL, Evaristo as 1,000 mL 00 :00 IV Medical Infusion, Branch ONCE, 1 dose, On Fri09/14/21 at 0430, STAT No known No Univers medications 09-14 ity of 03:21: [address] Vital Signs Vital Name Observation Time Observation Value Comments Source Heart rate 2021-09-14 09:30:00 104 /min [facility] Respiratory rate 2021-09-14 09:30:00 13 /min [facility] Oxygen saturation in 2021-09-14 09:30:00 97 /min [facility] Arterial blood by [facility] Pulse oximetry Branch Systolic blood 2021-09-14 09:15:00 140 mm[Hg] [facility] Diastolic blood 2021-09-14 09:15:00 84 mm[Hg] [facility] Body temperature 2021-09-14 08:24:00 35.83 Caro [facility] Body height 2021-09-14 08:24:00 182.9 cm [facility] Body weight 2021-09-14 08:24:00 108.863 kg [facility] BMI 2021-09-14 08:24:00 32.55 kg/m2 [facility] Procedures Procedure Date / Time Performed Performing Clinician Gian e CT CERVICAL SPINE WO 2021-09-14 09:05:00 Bakari Curry [facility] CONTRAST [facility] CT 2021-09-14 09:05:00 Bakari Curry [facility] MAXILLOFACIAL/MANDIBLE [facility] [place] WO CONTRAST CT HEAD WO CONTRAST 2021-09-14 09:05:00 Bakari Curry [facility] ASSIGNMENT OF BENEFITS 2021-09-14 08:15:13 Doctor Unassigned, No [facility] NOTICE OF PRIVACY 2021-09-14 08:14:50 Doctor Unassigned, No [facility] Name Medical Branch CONSENT/REFUSAL FOR 2021-09-14 08:14:14 Doctor Unassigned, No [facility] DIAGNOSIS AND Name Medical Branch TREATMENT Encounters Start End Encounter Admission Attending Care Care Encounter Source Date/Time Date/Time Type Type Clinicians Facility Department ID 2021-09-14 2021-09-14 Emergency [facility] [id number] Univers 03:16:00 05:04:00 , BAKARI ryder of [facility] 2021-09-14 2021-09-14 [facility] [id number] Univers 03:16:00 05:04:00 , Bakari SCHERER [id number] i ty of Nicolle DAVIS [id number] [facility] [id number] [facility] 084 Branch Results This patient has no known results.
[2022-01-07] MEDS ORDERED: NA CHLORIDE 0.9% 1,000 ML ONE (04:27)
[2022-01-07 04:37] LABS: Absolute Lymphocytes (CBC) 2.9 K/uL (0.7-4.9); Hematocrit 41.7 % (39.6-49.0); Lymphocytes % 32.1 % (15.3-44.8); MCV 79.9 fL (80-100); MPV 8.3 fL (7.6-11.3); RBC Red Blood Cell Count 5.22 M/uL (4.33-5.43)
[2022-01-07 05:17] LABS: Potassium 3.7 mmol/L (3.5-5.1)
--- NOTE | 2022-01-07 08:01 | EDPHYS ---
Physician Documentation [facility] Name: Umer Phillip Age: 26 yrs Sex: Male : 1995 Arrival Date: 01/07/2022 Time: 04:01 Bed 13 Private MD: ED Physician Shahriar Morgan HPI: 01/07 04:17 This 26 yrs old Male presents to ER via Ambulatory with complaints of Headache, kdr Dizziness, Chest Pain. 04:17 Patient has had multiple complaints including chest pain, headache, dizziness and kdr general malaise for the past 1 to 2 months. This evening while he was at work, he began to have some recurrent chest pain and dizziness. He sat down and rested for a while that seemed to improve and then when he went back up on the work area, he began to have the symptoms again so his employer representatives asked him to come in to be evaluated at the ED. He currently initial presentation is without any symptoms occluding chest pain or dizziness. He has not been nauseated. Denies any significant association between his discomfort and nausea, shortness of breath or diaphoresis. Patient is completely nontoxic-appearing in the ED and does not require any emergent intervention at this point. Onset: The symptoms/episode began/occurred suddenly, gradually. Historical: - Allergies: 04:05 No Known Allergies; as6 - Home Meds: 04:05 Trazodone Oral [Active]; as6 - PMHx: 04:05 Anxiety; Asthma; depressive disorder; as6 - PSHx: 04:05 Tonsillectomy; as6 - Immunization history:: Client reports having NOT received the Covid vaccine. - Social history:: Smoking status: Patient reports the use of cigarette tobacco products, smokes one-half pack cigarettes per day. ROS: 04:17 Constitutional: Negative for fever, chills, and weight loss, Eyes: Negative for injury, kdr pain, redness, and discharge, ENT: Negative for injury, pain, and discharge, Neck: Negative for injury, pain, and swelling, Respiratory: Negative for shortness of breath, cough, wheezing, and pleuritic chest pain, Abdomen/GI: Negative for abdominal pain, nausea, vomiting, diarrhea, and constipation, Back: Negative for injury and pain, : Negative for injury, bleeding, discharge, and swelling, MS/Extremity: Negative for injury and deformity, Skin: Negative for injury, rash, and discoloration, Neuro: Negative for headache, weakness, numbness, tingling, and seizure activity. Psych: Negative for depression, anxiety, suicide ideation, homicidal ideation, and hallucinations, Allergy/Immunology: Negative for hives, rash, and allergies, Endocrine: Negative for neck swelling, polydipsia, polyuria, polyphagia, and marked weight changes, Hematologic/Lymphatic: Negative for swollen nodes, abnormal bleeding, and unusual bruising. 04:17 Cardiovascular: Positive for chest pain, Negative for edema, orthopnea, palpitations, paroxysmal nocturnal dyspnea. Exam: 04:17 Constitutional: This is a well developed, well nourished patient who is awake, alert, kdr and in no acute distress. Head/Face: Normocephalic, atraumatic. Eyes: Pupils equal round and reactive to light, extra-ocular motions intact. Lids and lashes normal. Conjunctiva and sclera are non-icteric and not injected. Cornea within normal limits. Periorbital areas with no swelling, redness, or edema. Neck: Trachea midline, no thyromegaly or masses palpated, and no cervical lymphadenopathy. Supple, full range of motion without nuchal rigidity, or vertebral point tenderness. No Meningismus. Chest/axilla: Normal chest wall appearance and motion. Nontender with no deformity. No lesions are appreciated. Respiratory: Lungs have equal breath sounds bilaterally, clear to auscultation and percussion. No rales, rhonchi or wheezes noted. No increased work of breathing, no retractions or nasal flaring. Abdomen/GI: Soft, non-tender, with normal bowel sounds. No distension or tympany. No guarding or rebound. No evidence of tenderness throughout. Back: No spinal tenderness. No costovertebral tenderness. Full range of motion. Skin: Warm, dry with normal turgor. Normal color with no rashes, no lesions, and no evidence of cellulitis. MS/ Extremity: Pulses equal, no cyanosis. Neurovascular intact. Full, normal range of motion. Neuro: Awake and alert, GCS 15, oriented to person, place, time, and situation. Cranial nerves II-XII grossly intact. Motor strength 5/5 in all extremities. Sensory grossly intact. Cerebellar exam normal. Normal gait. Psych: Awake, alert, with orientation to person, place and time. Behavior, mood, and affect are within normal limits. 04:17 Cardiovascular: Rate: normal, Rhythm: regular, Pulses: no pulse deficits are appreciated, Heart sounds: normal, Edema: is not appreciated. Vital Signs: 04:02 BP 144 / 94; Pulse 91; Resp 16 S; Temp 98.5(O); Pulse Ox 100% on R/A; Weight 106.59 kg as6 (R); Height 6 ft. 0 in. (182.88 cm) (R); Pain 5/10; 05:15 BP 126 / 88; Pulse 75; Resp 17; Pulse Ox 99% on R/A; Pain 1/10; ke1 06:47 BP 129 / 99; Pulse 71; Resp 20; Pulse Ox 99% on R/A; Pain 0/10; ke1 08:29 BP 134 / 89; Pulse 78; Resp 18; Pulse Ox 100% ; Pain 0/10; ko1 04:02 Body Mass Index 31.87 (106.59 kg, 182.88 cm) as6 MDM: 04:17 Data reviewed: vital signs, nurses notes, lab test result(s), radiologic studies. kdr Counseling: I had a detailed discussion with the patient and/or guardian regarding: the historical points, exam findings, and any diagnostic results supporting the discharge/admit diagnosis, lab results, radiology results. 08:01 Patient medically screened. kdr 01/07 04:17 Order name: Basic Metabolic Panel kdr 01/07 04:17 Order name: CBC with Diff kdr 01/07 04:17 Order name: NT PRO-BNP kdr 01/07 04:17 Order name: Troponin HS kdr 01/07 04:38 Order name: CBC with Automated Diff; Complete Time: 07:44 EDMS 01/07 05:17 Order name: Basic Metabolic Panel; Complete Time: 07:44 EDMS 01/07 04:17 Order name: XRAY Chest (1 view) kdr 01/07 04:17 Order name: EKG; Complete Time: 04:18 kdr 01/07 05:17 Order name: Troponin High Sensitivity; Complete Time: 07:44 EDMS 01/07 05:17 Order name: NT PRO-BNP; Complete Time: 07:44 EDMS 01/07 08:07 Order name: CT Head Brain wo Cont kdr 01/07 08:31 Order name: CT EDMS 01/07 04:17 Order name: Cardiac monitoring; Complete Time: 04:32 kdr 01/07 04:17 Order name: EKG - Nurse/Tech; Complete Time: 04: kdr 01/07 04:17 Order name: IV Saline Lock; Complete Time: 04:32 kdr 01/07 04:17 Order name: Labs collected and sent; Complete Time: 04: kdr 01/07 04:17 Order name: O2 Per Protocol; Complete Time: 04: kdr 01/07 04:17 Order name: O2 Sat Monitoring; Complete Time: 04: kdr 01/07 07:50 Order name: Misc. Order: Ambulate patient and evaluate his stability; Complete Time: kdr 08:11 Administered Medications: 04:32 Drug: NS 0.9% 1000 ml Route: IV; Rate: 1 bolus; Site: right antecubital; ke1 08:12 Drug: Antivert (meclizine) 25 mg Route: PO; ko1 Disposition Summary: 01/07/22 08:01 Discharge Ordered Location: Home kdr Problem: new kdr Symptoms: have improved kdr Condition: Stable kdr Diagnosis - Weakness kdr - Other malaise and fatigue kdr - Dizziness and giddiness kdr Followup: kdr - With: Private Physician - When: 2 - 3 days - Reason: If symptoms return, Further diagnostic work-up, Recheck today's complaints, Continuance of care, Re-evaluation by your physician Discharge Instructions: - Discharge Summary Sheet kdr - Fatigue kdr - Weakness, [id number] kdr - Dizziness, [id number] kdr Forms: - Medication Reconciliation Form kdr - Thank You Letter kdr - Work release form ko1 Prescriptions: - Antivert 25 mg Oral tablet,chewable - chew 1 tablet by ORAL route 3 times per day As needed; 20 tablet; Refills: 0, kdr Product Selection Permitted Signatures: Dispatcher [employer] [facility] Shahriar Morgan MD MD kdr Carlos Box RN RN as6 Lin Peng RN RN ke1 Rosa Law RN RN ko1
--- NOTE | 2022-01-07 08:01 | ER ---
Nurse's Notes [facility] Name: Umer Phillip Age: 26 yrs Sex: Male : 1995 Arrival Date: 01/07/2022 Time: 04:01 Bed 13 Private MD: Diagnosis: Weakness;Other malaise and fatigue;Dizziness and giddiness Presentation: 01/07 04:02 Chief complaint: Patient states: "I was at work and all of a sudden I got dizzy, and as6 had chest pain". Coronavirus screen: At this time, the client does not indicate any symptoms associated with coronavirus-19. Ebola Screen: No symptoms or risks identified at this time. Initial Sepsis Screen: Does the patient meet any 2 criteria? HR > 90 bpm. Does the patient have a suspected source of infection? No. Patient's initial sepsis screen is negative. Risk Assessment: Do you want to hurt yourself or someone else? Patient reports no desire to harm self or others. Onset of symptoms was January 07, 2022. 04:02 Method Of Arrival: Ambulatory as6 04:02 Acuity: ELISEO 3 as6 Triage Assessment: 04:06 General: Appears in no apparent distress. Behavior is calm, cooperative. Pain: as6 Complains of pain in chest. Pain: Complains of pain in head. Neuro: Level of Consciousness is awake, alert, Reports dizziness, headache. Cardiovascular: Reports chest pain. 04:33 Headache History: The patient has had previous headaches and this one is similar to ke1 previous episodes. Pain: Also complains of. Pain: Complains of pain in head Pain currently is 4 out of 10 on a pain scale. at worst was 5 out of 10 on a pain scale. level that patient reports is acceptable is 4 out of 10 on a pain scale. Pain began gradually. Historical: - Allergies: 04:05 No Known Allergies; as6 - Home Meds: 04:05 Trazodone Oral [Active]; as6 - PMHx: 04:05 Anxiety; Asthma; depressive disorder; as6 - PSHx: 04:05 Tonsillectomy; as6 - Immunization history:: Client reports having NOT received the Covid vaccine. - Social history:: Smoking status: Patient reports the use of cigarette tobacco products, smokes one-half pack cigarettes per day. Screenin:33 Abuse screen: Denies threats or abuse. Nutritional screening: No deficits noted. ke1 Tuberculosis screening: No symptoms or risk factors identified. Fall Risk None identified. Assessment: 04:37 Reassessment: Denies CP at this time, but has been having CP for few months now. ke1 05:14 Reassessment: Patient states feeling better. Patient states symptoms have improved. ke1 06:47 Reassessment: No changes from previously documented assessment. ke1 07:25 Pain: Denies pain. ko1 08:00 Reassessment: Patient ambulated around nurses station 2 without difficulty, steady gait.ko1 08:29 Reassessment: No changes from previously documented assessment. General: Appears in no ko1 apparent distress. comfortable, Behavior is calm, cooperative, appropriate for age. Vital Signs: 04:02 BP 144 / 94; Pulse 91; Resp 16 S; Temp 98.5(O); Pulse Ox 100% on R/A; Weight 106.59 kg as6 (R); Height 6 ft. 0 in. (182.88 cm) (R); Pain 5/10; 05:15 BP 126 / 88; Pulse 75; Resp 17; Pulse Ox 99% on R/A; Pain 1/10; ke1 06:47 BP 129 / 99; Pulse 71; Resp 20; Pulse Ox 99% on R/A; Pain 0/10; ke1 08:29 BP 134 / 89; Pulse 78; Resp 18; Pulse Ox 100% ; Pain 0/10; ko1 04:02 Body Mass Index 31.87 (106.59 kg, 182.88 cm) as6 ED Course: 04:01 Patient arrived in ED. bp1 04:05 Triage completed. as6 04:05 Arm band placed on. as6 04:08 Lin Peng RN is Primary Nurse. ke1 04:09 Shahriar Morgan MD is Attending Physician. kdr 04:32 Inserted saline lock: 20 gauge in right antecubital area, using aseptic technique. ke1 04:37 Patient has correct armband on for positive identification. Placed in gown. Bed in low ke1 position. Call light in reach. 07:16 Basic Metabolic Panel Sent. ko1 07:16 CBC with Diff Sent. ko1 07:16 NT PRO-BNP Sent. ko1 07:16 Troponin HS Sent. ko1 08:29 No provider procedures requiring assistance completed. IV discontinued, intact, ko1 bleeding controlled, No redness/swelling at site. Pressure dressing applied. Administered Medications: 04:32 Drug: NS 0.9% 1000 ml Route: IV; Rate: 1 bolus; Site: right antecubital; ke1 08:12 Drug: Antivert (meclizine) 25 mg Route: PO; ko1 Medication: 08:29 VIS not applicable for this client. ko1 Outcome: 08:01 Discharge ordered by . kdr 08:29 Discharged to home ambulatory, with family. ko1 08:29 Condition: stable 08:29 Discharge instructions given to patient. 08:59 Patient left the ED. ko1 Signatures: Shahriar Morgan MD MD kdr Matilde Dupont Ashby, RN RN as6 Lin Peng RN RN ke1 Rosa Law RN RN ko1 Corrections: (The following items were deleted from the chart) 08:33 08:29 General: Appears in no apparent distress. comfortable, Behavior is calm, ko1 cooperative, appropriate for age, ko1 08:33 08:29 Pain: Denies pain. ko1 ko1 08:33 08:29 Reassessment: No changes from previously documented assessment. ko1 ko1
[2022-01-07] MEDS ORDERED: MECLIZINE HCL 12.5 MG TAB ONE (08:04)
--- NOTE | 2022-01-07 08:30 | RAD REPORT ---
EXAM DESCRIPTION: CT - Head Brain Wo Cont - 01/07/2022 8:25 am CLINICAL HISTORY: dizzy Headache, drowsiness, alteration of consciousness. COMPARISON: Head Brain Wo Cont dated 05/02/2021 TECHNIQUE: All CT scans are performed using dose optimization technique as appropriate and may inclu de automated exposure control or mA/KV adjustment according to patient size. FINDINGS: No intracranial hemorrhage, hydrocephalus or extra-axial fluid collection.No areas of brai n edema or evidence of midline shift. The paranasal sinuses and mastoids are clear. The calvarium is intact. IMPRESSION: No acute intracranial abnormality.
[2022-01-07 09:24] VITALS: TEMP 98.5
[2022-01-07 09:28] VITALS: BP 134/89; O2SAT 100
--- NOTE | 2022-01-07 13:29 | RAD REPORT ---
EXAM DESCRIPTION: XR Chest, 1 View CLINICAL HISTORY: The patient is 26 years old and is Male; CHEST PAIN TECHNIQUE: Single view of the chest. COMPARISON: No relevant prior studies available. FINDINGS: Lungs: No pulmonary vascular congestion or consolidation. Pleural space: Unremarkable. No pneumothorax. Heart: Unremarkable. No cardiomegaly. Mediastinum: Unremarkable. Bones/joints: No acute fracture visualized. Upper abdomen: No free air in the visualized upper abdomen. IMPRESSION: No acute cardiopulmonary process identified. Electronically signed by: Simin Ayers MD 01/07/2022 5:11 AM CDT Due to temporary technical issues with the PACS/Fluency reporting system, reports are being signed by the in house radiologists without review as a courtesy to insure prompt reporting. The interpreting radiologist is fully responsible for the content of the report.
--- NOTE | 2022-01-07 14:12 | EKG ---
Test Date: 2022-01-07 Test Time: 04:21:05 Hockey Scout: KATHY MEASUREMENT RESULTS: Intervals: Rate: 83 ND: 160 QRSD: 84 QT: 352 QTc: 413 [place]: P: 74 ND: 160 QRS: 89 T: 43 INTERPRETIVE STATEMENTS: Normal sinus rhythm Normal ECG No previous ECG available for comparison Electronically Signed On 01-07-22 14:11:39 CDT by Jose J Chambers
== END 2022-01-07 08:59 | disposition home or self-care (01) ==
LOC: ER 03:57
DX: R53.1 Weakness (principal); R53.81 Other malaise; R53.83 Other fatigue; R42 Dizziness and giddiness; J45.909 Unspecified asthma, uncomplicated; F41.9 Anxiety disorder, unspecified; F17.210 Nicotine dependence, cigarettes, uncomplicated
CPT/HCPCS: 93005; 85025; 80048; 36415; 84484; 83880; 70450; 71045; 99284; J8597; J7030

== ENCOUNTER 2022-03-28 15:45 | Emergency (ER) | payer OTHER, BC ==
--- OUTSIDE RECORDS SUMMARY | 2022-03-28 16:02 | XMS REPORT | Continuity of Care Document ---
:1995 Author Organization [facility] t Address [address] [place] [address] Care Team Providers Name Role Phone [facility], [facility] ADMIN MED Primary Care Physician Unavailable BAKARI CURRY Attending Clinician Unavailable Bakari Curry MD Attending Clinician [phone] BAKARI CURRY Admitting Clinician Unavailable Payers Payer Name Policy Type Policy Number Effective Date Expiration Date Leif aldrich [facility] [id number] 2018 00:00:00 [employer] [id number] 2021 [employer] 00:00:00 Problems This patient has no known problems. Allergies, Adverse Reactions, Alerts Allergy Allergy Status Severity Reaction(s) Onset Inactive Treating Comm ents Source Name Type Date Date Clinician NO KNOWN Drug Active Univers ALLERGIE Class ity of [facility] Social History Social Habit Start Date Stop Date Quantity Comments Source Exposure to 2021-09-04 2021-09-14 Not sure [facility] SARS-CoV-2 (event) 00:00:00 03:17:00 Medica l Branch Sex Assigned At [birth year] [facility] 00:00:00 00:00:00 Medical Branch Smoking Status Start Date Stop Date Source Unknown if ever smoked [facility] Medications Ordered Filled Start Stop Current Ordering Indication Dosage Frequency Signature Comments Components Source Medication Medication Date Date Medication? Clinician (SIG) Name Name NaCl 0.9% 1000mL at 999 Uni vers (NS) bolus 09-1410 mL/hr, ity of infusion 09:30: 09:55 1,000 mL, Evaristo as 1,000 mL 00 :00 IV Medical Infusion, Branch ONCE, 1 dose, On Fri09/14/21 at 0430, STAT No known No Univers medications 09-14 ity of 03:21: [address] Vital Signs Vital Name Observation Time Observation Value Comments Source Heart rate 2021-09-14 09:30:00 104 /min [facility] Respiratory rate 2021-09-14 09:30:00 13 /min [facility] Oxygen saturation in 2021-09-14 09:30:00 97 /min [facility] Arterial blood by [facility] Pulse oximetry Branch Systolic blood 2021-09-14 09:15:00 140 mm[Hg] [facility] Diastolic blood 2021-09-14 09:15:00 84 mm[Hg] [facility] Body temperature 2021-09-14 08:24:00 35.83 Caro [facility] Body height 2021-09-14 08:24:00 182.9 cm [facility] Body weight 2021-09-14 08:24:00 108.863 kg [facility] BMI 2021-09-14 08:24:00 32.55 kg/m2 [facility] Procedures Procedure Date / Time Performed Performing Clinician Gian e CT CERVICAL SPINE WO 2021-09-14 09:05:00 [facility] CONTRAST [facility] CT 2021-09-14 09:05:00 Bakari Curry [facility] MAXILLOFACIAL/MANDIBLE [facility] WO CONTRAST CT HEAD WO CONTRAST 2021-09-14 09:05:00 Bakari Curry [facility] ASSIGNMENT OF BENEFITS 2021-09-14 08:15:13 Doctor Unassigned, No [facility] NOTICE OF PRIVACY 2021-09-14 08:14:50 Doctor Unassigned, No [facility] [place] [facility]ACT[facility] Name Medical Branch CONSENT/REFUSAL FOR 2021-09-14 08:14:14 Doctor Unassigned, No Un iversity [facility] DIAGNOSIS AND Name Medical Branch TREATMENT Encounters Start End Encounter Admission Attending Care Care Encounter Source Date/Time Date/Time Type Type Clinicians Facility Department ID 2021-09-14 2021-09-14 Emergency [facility] [id number] Univers 03:16:00 05:04:00 , BAKARI ryder of [facility] 2021-09-14 2021-09-14 [facility] [id number] Univers 03:16:00 05:04:00 , Bakari SCHERER [id number] i ty of Nicolle DAVIS [id number] [facility] [id number] [facility] 084 Branch Results This patient has no known results.
--- NOTE | 2022-03-28 17:17 | RAD REPORT ---
EXAM DESCRIPTION: RAD - Hand Right 3 View - 03/28/2022 5:08 pm CLINICAL HISTORY: PAIN COMPARISON: No comparisons FINDINGS/IMPRESSION: Mildly angulated fifth distal metacarpal fracture. No definite intra-articular extension. No other fractures identified.
[2022-03-28] MEDS ORDERED: IBUPROFEN 400 MG TAB ONE (17:35)
--- NOTE | 2022-03-28 17:38 | EDPHYS ---
Physician Documentation [facility] Name: Umer Phillip Age: 26 yrs Sex: Male : 1995 Arrival Date: 03/28/2022 Time: 15:48 Bed 11 Private MD: ED Physician Bull Kelly HPI: 03/28 17:33 This 26 yrs old Male presents to ER via Ambulatory with complaints of Hand Injury. kb 17:33 The patient or guardian reports decreased range of motion, deformity, injury, pain, kb swelling, tenderness. The complaints affect the dorsum of right hand. Context: resulted from fell out of truck and struck the concrete with fist. Onset: The symptoms/episode began/occurred 3 day(s) ago. Modifying factors: The symptoms are alleviated by nothing, the symptoms are aggravated by nothing. Associated signs and symptoms: The patient has no apparent associated signs or symptoms. Severity of symptoms: At their worst the symptoms were moderate, in the emergency department the symptoms are unchanged. The patient has not experienced similar symptoms in the past. The patient has not recently seen a physician. Historical: - Allergies: 15:56 No Known Allergies; ll1 - PMHx: 15:56 Anxiety; Asthma; depressive disorder; ll1 - PSHx: 15:56 Tonsillectomy; ll1 - Immunization history:: Client reports having NOT received the Covid vaccine. - Social history:: Smoking status: Patient denies any tobacco usage or history of. ROS: 17:32 Constitutional: Negative for fever, chills, and weight loss. kb 17:32 MS/extremity: Positive for injury or acute deformity, decreased range of motion, pain, swelling, tenderness, of the dorsum of right hand. 17:32 All other systems are negative. Exam: 17:32 Constitutional: This is a well developed, well nourished patient who is awake, alert, kb and in no acute distress. Head/Face: Normocephalic, atraumatic. ENT: Moist Mucous membranes Cardiovascular: Regular rate and rhythm with a normal S1 and S2. No gallops, murmurs, or rubs. No pulse deficits. Respiratory: Respirations even and unlabored. No increased work of breathing. Talking in full sentences Abdomen/GI: Soft, non-tender. No distention Skin: Warm, dry with normal turgor. Normal color. Neuro: Awake and alert, GCS 15, oriented to person, place, time, and situation. Moves all extremities. Normal gait. Psych: Awake, alert, with orientation to person, place and time. Behavior, mood, and affect are within normal limits. 17:32 Musculoskeletal/extremity: Extremities: grossly normal except: noted in the dorsum of right hand: decreased ROM, ecchymosis, pain, swelling, tenderness, ROM: limited active range of motion due to pain, in the right little finger, Circulation is intact in all extremities. Sensation intact. Vital Signs: 15:57 BP 150 / 92; Pulse 105; Resp 18; Temp 98.8; Pulse Ox 100% ; Weight 106.59 kg; Height 6 ll1 ft. 0 in. (182.88 cm); Pain 8/10; 15:57 Body Mass Index 31.87 (106.59 kg, 182.88 cm) ll1 MDM: 15:48 Patient medically screened. kb 17:20 Data reviewed: vital signs, nurses notes. Data interpreted: Pulse oximetry: on room air kb is 100 %. Interpretation: normal. Counseling: I had a detailed discussion with the patient and/or guardian regarding: the historical points, exam findings, and any diagnostic results supporting the discharge/admit diagnosis, radiology results, the need for outpatient follow up, a orthopedic surgeon, to return to the emergency department if symptoms worsen or persist or if there are any questions or concerns that arise at home. 03/28 15:52 Order name: Hand Right 3 View XRAY; Complete Time: 17:20 hb 03/28 17:21 Order name: Ulnar Gutter splint; Complete Time: 18:41 kb 03/28 17:21 Order name: Sling; Complete Time: 18:41 kb Administered Medications: 17:36 Drug: Ibuprofen 800 mg Route: PO; hb Disposition: 18:50 Co-signature as Attending Physician, Bull Kelly MD I agree with the assessment and rt plan of care. Disposition Summary: 03/28/22 17:37 Discharge Ordered Location: Home kb Condition: Stable kb Diagnosis - Displaced fracture fifth metacarpal - right hand kb Followup: kb - With: Emergency Department - When: As needed - Reason: Worsening of condition Followup: kb - With: Private Physician - When: 2 - 3 days - Reason: Recheck today's complaints, Continuance of care, Re-evaluation by your physician Discharge Instructions: - Discharge Summary Sheet kb - Metacarpal Fracture, [id number] kb Forms: - Medication Reconciliation Form kb - Thank You Letter kb - Antibiotic Education kb - Prescription Opioid Use kb Signatures: Dispatcher [employer] EDShaila Marino FNP-C FNP-Jami Plaza RN RN Malik Hernandez RN RN ll1 Bull Kelly MD MD rt
--- NOTE | 2022-03-28 17:38 | ER ---
Nurse's Notes [facility] Name: Umer Phillip Age: 26 yrs Sex: Male : 1995 Arrival Date: 03/28/2022 Time: 15:48 Bed 11 Private MD: Diagnosis: Displaced fracture fifth metacarpal - right hand Presentation: 03/28 15:57 Chief complaint: Patient states: R hand pain s/p falling out of truck and hitting the ll1 concrete. Coronavirus screen: Vaccine status: Patient reports being unvaccinated. Client denies travel out of the [place] in the last 14 days. At this time, the client does not indicate any symptoms associated with coronavirus-19. Ebola Screen: Patient denies travel to an Ebola-affected area in the 21 days before illness onset. Initial Sepsis Screen: Does the patient meet any 2 criteria? No. Patient's initial sepsis screen is negative. Does the patient have a suspected source of infection? Yes: Bone or joint infection. Risk Assessment: Do you want to hurt yourself or someone else? Patient reports no desire to harm self or others. Onset of symptoms is unknown. 15:57 Method Of Arrival: Ambulatory ll1 15:57 Acuity: ELISEO 4 ll1 Triage Assessment: 15:58 General: Appears uncomfortable, Behavior is calm, cooperative, appropriate for age. ll1 Pain: Complains of pain in right hand Pain currently is 8 out of 10 on a pain scale. Quality of pain is described as aching. Musculoskeletal: Circulation, motion, and sensation intact. Capillary refill < 3 seconds, Range of motion: limited in MCP of right little finger Tenderness present in right hand Reports pain in right hand. Injury Description: Bruise. Historical: - Allergies: 15:56 No Known Allergies; ll1 - PMHx: 15:56 Anxiety; Asthma; depressive disorder; ll1 - PSHx: 15:56 Tonsillectomy; ll1 - Immunization history:: Client reports having NOT received the Covid vaccine. - Social history:: Smoking status: Patient denies any tobacco usage or history of. Screenin:59 [facility] ED Fall Risk Assessment (Adult) History of falling in the last 3 months, ll1 including since admission Yes- single mechanical fall (1 pt) Score/Fall Risk Level 0 - 2 = Low Risk Oriented to surroundings, Maintained a safe environment, Educated pt \T\ family on fall prevention, incl call for assistance when getting out of bed, Hourly rounding (assess needs \T\ fall precautionary measures) done. Abuse screen: Denies threats or abuse. Nutritional screening: No deficits noted. Tuberculosis screening: No symptoms or risk factors identified. Vital Signs: 15:57 BP 150 / 92; Pulse 105; Resp 18; Temp 98.8; Pulse Ox 100% ; Weight 106.59 kg; Height 6 ll1 ft. 0 in. (182.88 cm); Pain 8/10; 15:57 Body Mass Index 31.87 (106.59 kg, 182.88 cm) ll1 ED Course: 15:48 Patient arrived in ED. mr 15:48 Shaila Chester FNP-C is [facility]. kb 15:48 Bull Kelly MD is Attending Physician. kb 15:56 Malik Hernandez, RN is Primary Nurse. ll1 15:56 Arm band placed on Patient placed in an exam room, on a stretcher. ll1 15:58 Triage completed. ll1 15:59 Patient has correct armband on for positive identification. Bed in low position. Call ll1 light in reach. Side rails up X 1. Cardiac monitoring not applicable on this patient. 17:10 Hand Right 3 View XRAY In Process Unspecified. EDMS Administered Medications: 17:36 Drug: Ibuprofen 800 mg Route: PO; hb Medication: 15:59 VIS not applicable for this client. ll1 Outcome: 17:37 Discharge ordered by . kb 18:42 Patient left the ED. hb Signatures: Dispatcher [employer] EDMS Shaila Chester FNP-C FNP-Ckb RiveraDaisha mr KongJami, RN RN hb Malik Hernandez, LAURA RN ll1
[2022-03-28 18:48] VITALS: BP 150/92; TEMP 98.8; O2SAT 100
== END 2022-03-28 18:42 | disposition home or self-care (01) ==
LOC: ER 15:45
PROC: 2W3EX1Z Immobilization of Right Hand using Splint (ICD-10-PCS; principal; 2022-03-28)
DX: S62.306A Unspecified fracture of fifth metacarpal bone, right hand, initial encounter for closed fracture (principal)
CPT/HCPCS: 99283